=== PATIENT | female | born 1995 | race Caucasian/White ===

== ENCOUNTER 2023-05-09 10:28 | Emergency (ER) | payer BC ==
[2023-05-09 10:59] LABS: HCG,QUALITATIVE URINE Negative
[2023-05-09] MEDS ORDERED: METHOCARBAMOL 500 MG TABLET PO ONE (11:09)
[2023-05-09] MEDS ORDERED: KETOROLAC TROMETHAMINE 30 MG/1 ML VIAL IM ONE (11:09)
[2023-05-09] MEDS ORDERED: LIDOCAINE 5% TOPICAL PATCH TP ONE (11:09)
[2023-05-09] MEDS ORDERED: KETOROLAC TROMETHAMINE 30 MG/1 ML VIAL ONE (11:30)
[2023-05-09] MEDS ORDERED: LIDOCAINE 5% TOPICAL PATCH ONE (11:30)
[2023-05-09] MEDS ORDERED: METHOCARBAMOL 500 MG TABLET ONE (11:30)
[2023-05-09] MEDS ORDERED: LIDOCAINE PATCH REMOVAL MC ONE (22:00)
== END 2023-05-09 12:41 | disposition home or self-care (01) ==
LOC: FER 10:28
PROC: 3E0233Z Introduction of Anti-inflammatory into Muscle, Percutaneous Approach (ICD-10-PCS; principal; 2023-05-09)
DX: M54.6 Pain in thoracic spine (principal); X50.0XXA Overexertion from strenuous movement or load, initial encounter
CPT/HCPCS: 81003; 84703; 99283-25

== ENCOUNTER 2023-05-22 09:12 | Emergency (ER) | payer BC ==
[2023-05-22] MEDS ORDERED: KETOROLAC TROMETHAMINE 15 MG/ML VIAL IVPUSH ONE ×2 (09:17→10:29)
[2023-05-22] MEDS ORDERED: DEXAMETHASONE SOD PHOSPHATE 4 MG/1 ML VIAL IVPUSH ONE (09:18)
[2023-05-22] MEDS ORDERED: ONDANSETRON 4 MG/2 ML VIAL IVPUSH ONE (09:18)
[2023-05-22] MEDS ORDERED: SODIUM CHLORIDE 1,000 ML IV STA (09:18)
[2023-05-22 09:20] VITALS: BP 133/90; PULSE 112; RESP 16; TEMP 99.4; BMI 20.3
[2023-05-22] MEDS ORDERED: ONDANSETRON 4 MG/2 ML VIAL ONE (09:23)
[2023-05-22] MEDS ORDERED: KETOROLAC TROMETHAMINE 15 MG/ML VIAL ONE ×2 (09:24→10:31)
[2023-05-22] MEDS ORDERED: DEXAMETHASONE SOD PHOSPHATE 4 MG/1 ML VIAL ONE (09:24)
[2023-05-22] MEDS ORDERED: METOCLOPRAMIDE HCL INJECTION 10 MG/2 ML VIAL IVPUSH ONE (10:29)
[2023-05-22] MEDS ORDERED: METOCLOPRAMIDE HCL INJECTION 10 MG/2 ML VIAL ONE (10:31)
[2023-05-22] MEDS ORDERED: morphine SULFATE 4 MG/ML VIAL IVPUSH ONE (10:59)
== END 2023-05-22 11:59 | disposition home or self-care (01) ==
LOC: FER 09:12
PROC: 3E033GC Introduction of Other Therapeutic Substance into Peripheral Vein, Percutaneous Approach (ICD-10-PCS; principal; 2023-05-22)
PROC: 3E0333Z Introduction of Anti-inflammatory into Peripheral Vein, Percutaneous Approach (ICD-10-PCS; 2023-05-22)
PROC: 3E033GC Introduction of Other Therapeutic Substance into Peripheral Vein, Percutaneous Approach (ICD-10-PCS; 2023-05-22)
PROC: 3E033GC Introduction of Other Therapeutic Substance into Peripheral Vein, Percutaneous Approach (ICD-10-PCS; 2023-05-22)
PROC: 3E033GC Introduction of Other Therapeutic Substance into Peripheral Vein, Percutaneous Approach (ICD-10-PCS; 2023-05-22)
PROC: 3E0333Z Introduction of Anti-inflammatory into Peripheral Vein, Percutaneous Approach (ICD-10-PCS; 2023-05-22)
PROC: 3E0337Z Introduction of Electrolytic and Water Balance Substance into Peripheral Vein, Percutaneous Approach (ICD-10-PCS; 2023-05-22)
DX: G43.909 Migraine, unspecified, not intractable, without status migrainosus (principal)
CPT/HCPCS: 99284-25

== ENCOUNTER 2024-05-27 00:25 | Emergency (ER) | payer BC ==
[2024-05-27 00:36] VITALS: BP 111/83; PULSE 84; RESP 18; BMI 20.7
[2024-05-27] MEDS: MAG HYDROX/AL HYDROX/SIMETH -MYLANTA- ORAL SUSPENSION PO ONE (00:49)
[2024-05-27] MEDS: ONDANSETRON 4 MG/2 ML VIAL IVPB ONE (00:50)
[2024-05-27] MEDS: FAMOTIDINE 20 MG/50 ML IVPB 20 MG in PREMIX 50 IVPB ONE (00:50)
[2024-05-27 01:47] LABS: BASO % 0.5 % (0-2.0); EOS % 0.3 % (0-4.5); HEMATOCRIT 41.5 % (32.4-45.2); HEMOGLOBIN 13.9 GM/dL (10.7-15.3); LYMPH % 17.1 % (8-40); MCH 30.2 pg (25.7-33.7); MCHC 33.5 g/dl (32.0-36.0); MEAN CELL VOLUME 90.1 fl (80-96); MEAN PLT VOLUME 9.9 fl (7.5-11.1); MONO % 5.1 % (3.8-10.2); PLATELET COUNT 147 10^3/uL (134-434); RBC 4.61 M/mm3 (3.60-5.2); RDW 13.2 % (11.6-15.6); WHITE BLOOD COUNT 8.4 K/mm3 (4.0-10.0)
[2024-05-27] MEDS ORDERED: KETOROLAC TROMETHAMINE 30 MG/1 ML VIAL ONE (01:49)
[2024-05-27] MEDS ORDERED: ACETAMINOPHEN INJECTION 100 ML ONE (01:53)
[2024-05-27] MEDS: KETOROLAC TROMETHAMINE 30 MG/1 ML VIAL IVPUSH ONE (01:53)
[2024-05-27] MEDS: ACETAMINOPHEN 1000 MG/100 ML BAG IVPB ONE (01:56)
[2024-05-27 01:57] VITALS: TEMP 99.2
[2024-05-27 02:05] LABS: POTASSIUM 3.6 mmol/L (3.5-5.1)
[2024-05-27 02:07] LABS: ALBUMIN 4.4 g/dl (3.4-5.0); BLOOD UREA NITROGEN 15.5 mg/dL (7-18); CALCIUM 9.6 mg/dL (8.5-10.1)
[2024-05-27 02:12] LABS: BILIRUBIN,TOTAL 1.1 mg/dL (0.2-1); TOT PROT 7.3 g/dl (6.4-8.2)
[2024-05-27 02:41] LABS: EPI CELLS >36 /uL (0-25.1); HYALINE CASTS 7 /uL (0-3.1); PH,URINE 5.5 (5.0-8.0); URINE APPEARANCE CLOUDY; URINE BACTERIA 8405 /uL (0-1359); URINE BILIRUBIN NEGATIVE (NEGATIVE); URINE COLOR YELLOW; URINE GLUCOSE (UA) NEGATIVE (NEGATIVE); URINE KETONE 1+ (NEGATIVE); URINE LEUK ESTERASE TRACE (NEGATIVE); URINE NITRITE NEGATIVE (NEGATIVE); URINE PROTEIN TRACE (NEGATIVE); URINE WBC 183 /uL (0-25.8)
[2024-05-27] MEDS ORDERED: SUCRALFATE 1 GM/10 ML UNIT DOSE CUPS ONE (02:58)
[2024-05-27] MEDS: SUCRALFATE 1 GM TABLET (FP) PO SCH (02:59)
[2024-05-27 03:06] LABS: HCG,QUALITATIVE URINE NEGATIVE
[2024-05-27] MEDS ORDERED: DICYCLOMINE HCL 10 MG CAPSULE ONE (03:50)
[2024-05-27] MEDS: DICYCLOMINE HCL 10 MG/5 ML PO ONE (03:52)
[2024-05-27] MEDS: DICYCLOMINE HCL 10 MG CAPSULE PO ONE (03:53)
[2024-05-27 04:28] LABS: URINE RBC 24.4 /uL (0-23.9)
== END 2024-05-27 06:27 | disposition home or self-care (01) ==
LOC: FER 00:25
PROC: 3E033GC Introduction of Other Therapeutic Substance into Peripheral Vein, Percutaneous Approach (ICD-10-PCS; principal; 2024-05-27)
PROC: 3E033NZ Introduction of Analgesics, Hypnotics, Sedatives into Peripheral Vein, Percutaneous Approach (ICD-10-PCS; 2024-05-27)
PROC: 3E0333Z Introduction of Anti-inflammatory into Peripheral Vein, Percutaneous Approach (ICD-10-PCS; 2024-05-27)
PROC: 3E033GC Introduction of Other Therapeutic Substance into Peripheral Vein, Percutaneous Approach (ICD-10-PCS; 2024-05-27)
DX: K37 Unspecified appendicitis (principal); R10.13 Epigastric pain; R11.2 Nausea with vomiting, unspecified
CPT/HCPCS: 36415; 74177-TC; 80053; 81003; 83690; 84703; 85025; 87086; 99285-25; J0131

== ENCOUNTER 2024-05-27 08:31 | Day surgery (SDC) | payer BC ==
[2024-05-27] MEDS ORDERED: ACETAMINOPHEN INJECTION 100 ML ONE ×2 (09:29→12:07)
[2024-05-27] MEDS ORDERED: LACTATED RINGERS SOLUTION 1,000 ML/1,000 ML INFUS.BAG IV SCH (09:30)
[2024-05-27] MEDS ORDERED: PIPERACILLIN/TAZOB 4.5 GM 4.5 GM/100 ML BAG IVPB ONE (09:30)
[2024-05-27] MEDS ORDERED: ONDANSETRON 4 MG/2 ML VIAL ONE ×2 (09:30→10:17)
[2024-05-27] MEDS: ACETAMINOPHEN 1000 MG/100 ML BAG IVPB ONE ×2 (09:41→12:12)
[2024-05-27] MEDS: PIPERACILLIN/TAZOB 4.5 GM 4.5 GM in DEXTROSE 5%-WATER 100 ML IVPB ONE (09:57)
[2024-05-27 10:00] LABS: INR 1.13 (0.83-1.09); PROTHROMBIN TIME (PATIENT) 12.7 SEC (9.7-13.0)
[2024-05-27 10:03] LABS: ACTIVATED PTT 30.8 SECONDS (25.2-36.5)
[2024-05-27] MEDS ORDERED: LIDOCAINE HCL/PF 2% SDV 5ML VIAL ONE (10:17)
[2024-05-27] MEDS ORDERED: DEXAMETHASONE SOD PHOSPHATE 4 MG/1 ML VIAL ONE (10:17)
[2024-05-27] MEDS ORDERED: MIDAZOLAM HCL 2 MG/2 ML SINGLE DOSE VIAL ONE (10:18)
[2024-05-27] MEDS ORDERED: ROCURONIUM BROMIDE 50 MG/5 ML SYRINGE ONE (10:18)
[2024-05-27] MEDS: LACTATED RINGERS SOLUTION 1000 ML INFUS.BAG IV ONE (10:18)
[2024-05-27] MEDS ORDERED: PROPOFOL 20 ML ONE (10:18)
[2024-05-27] MEDS ORDERED: BUPIVACAINE HCL/PF 0.25% (2.5MG/ML) 10 ML VIAL ONE (10:26)
[2024-05-27] MEDS: BUPIVACAINE HCL/PF 2.5 MG/ML - 30 ML VIAL IJ ONE (11:14)
[2024-05-27] MEDS ORDERED: SUGAMMADEX SODIUM 200 MG/2 ML VIAL ONE (11:43)
[2024-05-27] MEDS ORDERED: KETOROLAC TROMETHAMINE 30 MG/1 ML VIAL ONE (11:43)
[2024-05-27] MEDS ORDERED: ONDANSETRON 4 MG/2 ML VIAL IVPUSH PRN (12:04)
[2024-05-27] MEDS ORDERED: KETOROLAC TROMETHAMINE 15 MG/ML VIAL IVPUSH PRN (12:11)
[2024-05-27] MEDS: LACTATED RINGERS SOLUTION 1,000 ML IV SCH (12:21)
[2024-05-27 14:19] VITALS: BMI 20.4
[2024-05-27] MEDS: ACETAMINOPHEN 325 MG TABLET (FP) PO SCH (17:29)
[2024-05-27] MEDS: LACTATED RINGERS SOLUTION 1,000 ML/1,000 ML INFUS.BAG IV SCH (21:20)
[2024-05-28] MEDS: oxyCODONE HCL 5 MG TABLET PO PRN (09:24)
[2024-05-28 10:37] VITALS: BP 110/70; PULSE 100; RESP 17; TEMP 98.2
== END 2024-05-28 14:36 | disposition home or self-care (01) ==
LOC: JER 08:31 → JERBED 09:18 → UNDOADMOB 09:18 → INTOOBSV 09:18 → UNDOADMOB 09:25 → JERBED 09:25 → J5S 13:27 → JERBED 13:27 → JASUSAT 05-28 09:23 → J5S 05-28 09:45 → JASUSAT 05-28 14:36
PROVIDERS: ATTEND Internal Medicine
PROC: 0DTJ4ZZ Resection of Appendix, Percutaneous Endoscopic Approach (ICD-10-PCS; principal; 2024-05-28)
DX: K35.890 Other acute appendicitis without perforation or gangrene (principal)
CPT/HCPCS: 36415; 85610; 85730; 86850; 86900; 86901; 93005; 93010; 94010; 94760; 99285-25; J0131

== ENCOUNTER 2024-08-02 10:29 | Emergency (ER) | payer BC ==
[2024-08-02 10:38] VITALS: BP 144/85; PULSE 98; RESP 18; TEMP 99.6; BMI 20.2
[2024-08-02] MEDS ORDERED: PANTOPRAZOLE 40 MG TABLET PO ONE (10:43)
[2024-08-02] MEDS: PANTOPRAZOLE 40 MG TABLET PO ONE (10:47)
[2024-08-02 11:05] LABS: HCG,QUALITATIVE URINE Negative
[2024-08-02 11:07] LABS: HEMATOCRIT 42.9 % (32.4-45.2); HEMOGLOBIN 13.9 G/dL (10.7-15.3); MCH 29.2 pg (25.7-33.7); MCHC 32.4 g/dl (32.0-36.0); MEAN CELL VOLUME 89.9 fl (80-96); MEAN PLT VOLUME 10.4 fl (7.5-11.1); PLATELET COUNT 166.3 10^3/uL (134-434); RBC 4.77 10^6/uL (3.60-5.2); RDW 13.4 % (11.6-15.6); WHITE BLOOD COUNT 3.9 10^3/uL (4.0-10.8)
[2024-08-02 11:09] LABS: PLATELET ESTIMATE ADEQUATE
[2024-08-02 11:17] LABS: ALBUMIN 4.6 g/dl (3.4-5.0); BILIRUBIN,TOTAL 1.1 mg/dl (0.2-1); CALCIUM 9.5 mg/dl (8.5-10.1); CREATININE 0.9 mg/dl (0.6-1.3); POTASSIUM 4.1 mmol/L (3.5-5.1); TOT PROT 6.9 g/dl (6.4-8.2)
[2024-08-02 13:37] LABS: HIV INTERPRETATION NEGATIVE (NEGATIVE)
== END 2024-08-02 11:44 | disposition home or self-care (01) ==
LOC: FER 10:29
DX: K27.9 Peptic ulcer, site unspecified, unspecified as acute or chronic, without hemorrhage or perforation (principal); R10.13 Epigastric pain; R11.10 Vomiting, unspecified
CPT/HCPCS: 36415; 80053; 81003; 81015; 81025; 83690; 84703; 85027; 86803; 87389; 99283-25